=== PATIENT | male | born 1985 | race Two or more races ===

== ENCOUNTER 2023-02-28 15:27 | Emergency (ER) | payer OTHER ==
[~2023-02-28] VITALS: Ht 182.9 cm; Wt 86.2 kg
== END 2023-02-28 18:47 | disposition home or self-care (01) ==
LOC: ER 15:28
DX: S61.216A Laceration without foreign body of right little finger without damage to nail, initial encounter (principal); X58.XXXA Exposure to other specified factors, initial encounter; Y93.9 Activity, unspecified; Y92.9 Unspecified place or not applicable; Y99.0 Civilian activity done for income or pay